=== PATIENT | female | born 1940 | race Native Hawaiian/Other Pacific Islander ===

== ENCOUNTER 2017-12-25 22:29 | Inpatient (IN) | payer MEDICARE ==
--- NOTE | 2017-12-26 00:34 | C.PDOC ---
History Of Present Illness patient walking to the kitchen, tripped and fell, hitting her head. No Loc. Seen by family. No n/v. History obtained from family as pt with severe dementia Time Seen by Provider: 12/26/17 00:28 History Per: Family History/Exam Limitations: physical impairment Onset/Duration Of Symptoms: Hrs Patient States: Fell Striking Head Severity: Moderate Pain Scale Rating Of: 4 Loss Of Consciousness: No Recent travel outside of the [place]: No Additional History Per: Family Past Medical History Reviewed: Historical Data, Nursing Documentation, Vital Signs Vital Signs: Last Vital Signs Temp 98.7 F 12/25/17 23:00 Pulse 74 12/26/17 03:02 Resp 16 12/26/17 03:02 BP 126/76 12/26/17 03:02 Pulse Ox 95 12/26/17 03:02 Family History: States: No Known Family Hx Review Of Systems Review Of Systems: ROS cannot be obtained secondary to pt's inabilty to answer questions. Physical Exam - Physical Exam Appears: Non-toxic Skin: Warm, Dry, Other (1 cm lac left forehead) Head: Normacephalic, Laceration Eye(s): bilateral: Normal Inspection Ear(s): Bilateral: Normal Oral Mucosa: Moist Neck: Trachea Midline, No Midline Cervical Tenderness, No Paracervical Tenderness, Supple Chest: Symmetrical Cardiovascular: Rhythm Regular Respiratory: No Rales, No Rhonchi, No Wheezing Gastrointestinal/Abdominal: Soft, No Tenderness, No Distention Back: No CVA Tenderness Extremity: Normal ROM Extremity: Bilateral: Atraumatic, Normal Color And Temperature Pulses: Left Dorsalis Pedis: Normal, Right Dorsalis Pedis: Normal Neurological/Psych: Eyes Open With Command, Other (severe dementia) Disoriented To: Place, Time, Situation Gait: Unable To Assess ED Course And Treatment - Laboratory Results Result Diagrams: 12/26/17 03:18 12/26/17 03:18 ECG: Interpreted By Me, Viewed By Me ECG Rhythm: Sinus Rhythm Pulse Ox Interpretation: Normal - Radiology CXR: Interpreted by Me, Viewed By Me CXR Interpretation: No: Infiltrates, Fracture, Pnemothorax Progress Note: spoke with dr rousseau, neurosurgery - repeat ct in am. family at bedside and aware of ct findings Critical Care Time - Critical Care Note Total Time (in mins): 30 Documented critical care: time excludes all time spent performing seperately billable procedures. Laceration - Laceration Repair 1.2 Wound Length (In cm): 1.3 Description Of Wound: Linear Wound Cleansed With: Betadine Anesthesia: Lidocaine 1%, With Epi Wound Examination: Irrigated With Saline Wound Closure: Suture (6.0 vycryl #2) Suture Technique And Material Used: Interrupted Wound Complexity: Simple Disposition Discussed With Dr.: Juan Carlos Muñiz Comment: accepted the pt on her service and took over the care at 4:22 AM Doctor Will See Patient In The: Hospital Counseled Patient/Family Regarding: Studies Performed, Diagnosis, Need For Followup - Disposition Disposition: HOSPITALIZED Disposition Time: 00:32 Condition: FAIR - Clinical Impression Clinical Impression: Laceration of forehead, Fall, Subdural bleeding Decision To Admit - Pt Status Changed To: Hospital Disposition Of: Inpatient - Admit Certification Admit to Inpatient:: After my assessment, the patient will require hospitalization for at least two midnights. This is because of the severity of symptoms shown, intensity of services needed, and/or the medical risk in this patient being treated as an outpatient. - InPatient: Physician Admission Certification: I certify that this patient requires 2 or more midnights of care for the following reason:: After my assessment, the patient will require hospitalization for at least two midnights. This is because of the severity of symptoms shown, intensity of services needed, and/or the medical risk in this patient being treated as an outpatient. - . Bed Request Type: Telemetry Admitting Physician: Juan Carlos Muñiz Patient Diagnosis: Laceration of forehead, Fall, Subdural bleeding
[2017-12-26 03:24] LABS: BASO % 0.5 % (0.0-2.0); EOS # 0.2 K/uL (0.0-0.7); EOS % 2.5 % (0.0-4.0); HEMOGLOBIN 11.2 g/dL (11.0-16.0); LYMPH # 2.5 K/uL (1.0-4.3); LYMPH % 30.5 % (20.0-40.0); MEAN CORPUSCULAR HEMOGLOBIN 31.8 pg (27.0-31.0); MEAN CORPUSCULAR HGB CONC 34.2 g/dL (33.0-37.0); MEAN PLATELET VOLUME 7.6 fL (7.2-11.7); MONO # 0.5 K/uL (0.0-0.8); MONO % 5.7 % (0.0-10.0); NEUT % 60.8 % (50.0-75.0); RBC 3.53 Mil/uL (3.80-5.20); RED CELL DISTRIBUTION WIDTH 13.6 % (11.5-14.5); WHITE BLOOD COUNT 8.2 K/uL (4.8-10.8)
[2017-12-26] MEDS ORDERED: Bacitracin 500 Units/gm Oint Foilpak UD ONE (03:31)
[2017-12-26 03:36] LABS: ALB/GLOB RATIO 1.5 (1.0-2.1); ALBUMIN 4.2 g/dL (3.5-5.0); ALT/SGPT 24 U/L (9-52); AST/SGOT 22 U/L (14-36); BLOOD UREA NITROGEN 12 mg/dL (7-17); CALCIUM 8.5 mg/dl (8.6-10.4); GFR AFRICAN-AMERICAN > 60; GFR NON-AFRICAN AMERICAN > 60; INR 1.1; PROTHROMBIN TIME 11.6 SECONDS (9.7-12.2)
[2017-12-26 04:40] LABS: SQUAMOUS EPITHIAL < 1 /hpf (0-5); URINE BACTERIA RARE (<OCC); URINE BILIRUBIN NEGATIVE (NEGATIVE); URINE BLOOD NEGATIVE (NEGATIVE); URINE CLARITY Clear (Clear); URINE COLOR Yellow (YELLOW); URINE GLUCOSE (UA) NORMAL (Normal); URINE LEUKOCYTE ESTERASE 1+ Leu/uL (Negative); URINE PROTEIN NEGATIVE (NEGATIVE); URINE UROBILINOGEN NORMAL mg/dL (0.2-1.0)
[2017-12-26 05:03] VITALS: RESP 20
--- NOTE | 2017-12-26 09:41 | CT ---
Date of service: 12/26/2017 PROCEDURE: CT MAXILLOFACIAL BONES WITHOUT CONTRAST HISTORY: Status post fall. COMPARISON: Comparison made with concurrent CT scan brain. TECHNIQUE: Contiguous axial CT images of the maxillofacial bones were obtained. Coronal and sagittal reformats were generated. Radiation dose: Total exam DLP = 779.89 mGy-cm. This CT exam was performed using one or more of the following dose reduction techniques: Automated exposure control, adjustment of the mA and/or kV according to patient size, and/or use of iterative reconstruction technique. FINDINGS: NASAL BONES: Unremarkable. ORBITS: Orbits and contents unremarkable. Globes intact and lenses appropriately located. There are no retrobulbar hemorrhages or collections. PARANASAL SINUSES/ MASTOIDS: Mucosal thickening seen within a few ethmoid air cells. MAXILLA: Maxilla appears intact. Note made of multiple missing maxillary and mandibular teeth MANDIBLE/ TEMPOROMANDIBULAR JOINTS: Unremarkable. SKULL BASE: Unremarkable. TEMPORAL BONES: Middle ear canals and contents appear grossly unremarkable. Partially visualized mastoid air complexes also unremarkable. OTHER FINDINGS: None. IMPRESSION: No evidence of acute maxillofacial skeletal fractures. Mild mucosal thickening seen within a few ethmoid air cells
[2017-12-26 10:13] LABS: ALB/GLOB RATIO 1.4 (1.0-2.1); ALBUMIN 3.9 g/dL (3.5-5.0); ALT/SGPT 15 U/L (9-52); AST/SGOT 36 U/L (14-36); BLOOD UREA NITROGEN 12 mg/dL (7-17); CALCIUM 8.3 mg/dl (8.6-10.4); GFR AFRICAN-AMERICAN > 60; GFR NON-AFRICAN AMERICAN > 60; HDL CHOLESTEROL 41 mg/dL (30-70)
--- NOTE | 2017-12-26 10:21 | CT ---
Date of service: 12/26/2017 PROCEDURE: CT HEAD WITHOUT CONTRAST. HISTORY: fall COMPARISON: Not available TECHNIQUE: Axial computed tomography images were obtained through the head/brain without intravenous contrast. Radiation dose: Total exam DLP = 802.26 mGy-cm. This CT exam was performed using one or more of the following dose reduction techniques: Automated exposure control, adjustment of the mA and/or kV according to patient size, and/or use of iterative reconstruction technique. FINDINGS: HEMORRHAGE: There is a subdural collection along left lateral convexity measuring up to 4 mm in width. This is seen predominantly over the temporal lobe. There is no subarachnoid or parenchymal hemorrhage appreciated. BRAIN: No mass effect or edema. Mild diffuse age-appropriate cerebral atrophy. Mild chronic periventricular white matter ischemic change consistent with patient age. VENTRICLES: Incidentally noted lipoma of the left choroid plexus. This measures approximately 5 mm in diameter. This has no probable clinical significance. CALVARIUM: Left frontal convexity scalp hematoma. No calvarial fracture identified. PARANASAL SINUSES: Minimal chronic ethmoid and bilateral maxillary sinusitis. MASTOID AIR CELLS: Unremarkable as visualized. No inflammatory changes. OTHER FINDINGS: None. IMPRESSION: 4 mm left temporal convexity subdural hemorrhage with no midline shift and no parenchymal or subarachnoid hemorrhage. 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 Left frontal convexity scalp hematoma. The preliminary findings for this examination were reported by [facility] at 2:15 a.m. on 12/26/2017. There is discordance of this report with the preliminary findings. There is disagreement upon the width of the left subdural hemorrhage. The left choroid plexus lipoma was not noted in preliminary report of this examination.
[2017-12-26 10:23] LABS: LDL CHOLESTEROL 44 mg/dL (0-129)
--- NOTE | 2017-12-26 10:40 | RAD ---
Date of service: 12/26/2017 PROCEDURE: CHEST RADIOGRAPH, 1 VIEW HISTORY: SOB COMPARISON: None available. FINDINGS: LUNGS: The lungs are clear. No focal consolidation. PLEURA: No pneumothorax or pleural fluid seen. CARDIOVASCULAR: The heart is normal in size. There is unfolding of the aorta. OSSEOUS STRUCTURES: No significant abnormalities. VISUALIZED UPPER ABDOMEN: Normal. OTHER FINDINGS: None. IMPRESSION: No active pulmonary disease.
--- NOTE | 2017-12-26 12:50 | CT ---
Date of service: 12/26/2017 PROCEDURE: CT HEAD WITHOUT CONTRAST. HISTORY: Subdural bleed COMPARISON: 12/26/2017. TECHNIQUE: Axial computed tomography images were obtained through the head/brain without intravenous contrast. Radiation dose: Total exam DLP = 758.09 mGy-cm. This CT exam was performed using one or more of the following dose reduction techniques: Automated exposure control, adjustment of the mA and/or kV according to patient size, and/or use of iterative reconstruction technique. FINDINGS: HEMORRHAGE: Interval evolution of known left temporal convexity acute subdural hematoma now measures 3 mm in maximum width. BRAIN: No mass, mass effect or midline shift. No herniation. There are mild chronic microangiopathic changes. There is no territorial infarction. VENTRICLES: There is moderate age-related global parenchymal volume loss and proportionate enlargement of the ventricles and cortical sulci. CALVARIUM: The skull base and calvarium are normal. There is decrease in size of left frontal scalp hematoma. PARANASAL SINUSES: Predominantly clear. MASTOID AIR CELLS: Predominantly clear. OTHER FINDINGS: None. IMPRESSION: Interval involution of known left temporal convexity acute subdural hematoma which now measures 3 mm maximum width. No evidence of mass effect, midline shift or herniation. No hydrocephalus. No other significant interval change.
--- NOTE | 2017-12-26 14:04 | CP.PCM.PN ---
Subjective - Date & Time of Evaluation Date of Evaluation: 12/26/17 Time of Evaluation: 14:04 - Subjective Subjective: H&P dictated #[id number] Objective - Vital Signs/Intake and Output Vital Signs (last 24 hours): Temp Pulse Resp BP Pulse Ox 97.3 F L 100 H 20 110/63 98 12/26/17 07:00 12/26/17 13:07 12/26/17 07:00 12/26/17 07:00 12/26/17 07:00 Intake and Output: 12/26/17 12/26/17 06:59 18:59 Intake Total 0 Balance 0 - Medications Medications: Current Medications Pneumococcal Polyvalent Vaccine (Pneumovax 23 Vaccine) 0.5 ml IM .ONCE ONE Stop: 12/29/17 11:01 - Labs Labs: 12/26/17 03:18 12/26/17 04:30 PT 11.6 SECONDS (9.7-12.2) 12/26/17 03:18 INR 1.1 12/26/17 03:18 APTT 31 SECONDS (21-34) 12/26/17 03:18
[2017-12-26 14:13] LABS: HEMOGLOBIN 11.7 g/dL (11.0-16.0); MEAN CELL VOLUME 92.3 fL (81.0-99.0); MEAN CORPUSCULAR HEMOGLOBIN 32.3 pg (27.0-31.0); MEAN PLATELET VOLUME 7.4 fL (7.2-11.7); RBC 3.61 Mil/uL (3.80-5.20); RED CELL DISTRIBUTION WIDTH 13.6 % (11.5-14.5); WHITE BLOOD COUNT 9.4 K/uL (4.8-10.8)
[2017-12-26 14:42] LABS: ALB/GLOB RATIO 1.2 (1.0-2.1); ALT/SGPT 23 U/L (9-52); AST/SGOT 23 U/L (14-36); BLOOD UREA NITROGEN 11 mg/dL (7-17); CALCIUM 8.5 mg/dl (8.6-10.4); GFR AFRICAN-AMERICAN > 60; GFR NON-AFRICAN AMERICAN > 60
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
--- NOTE | 2017-12-27 08:27 | CON ---
Copied To: German Rodriguez MD Attending MD: German Rodriguez MD DATE: 12/26/2017 HISTORY OF PRESENT ILLNESS: This is an 81-year-old lady apparently with baseline dementia according to her family who apparently fell late last night, seen in the [facility] ER, and was found to have increasing intracranial air and a very small left subdural hematoma. She was admitted to the hospital. On interviewing her today with the family present, she really is not giving much to the way of appropriate answers. She is making mostly the suspicious remarks, but she is following all commands in her ramona language. Pupils are equal and reactive. She has a significant amount of ecchymosis in and around the left orbit. Face is otherwise symmetric. She is moving all extremities with good strength. CT done last night and then repeated this afternoon which is unchanged, showed a very, very small left isodense subdural collection of really no clinical significance. Seems to have small amounts of air in the left lateral ventricle, unclear where they were come from. Does not seem to have any air in the subfrontal region. Anyway, this is unchanged from prior. IMPRESSION AND PLAN: Certainly, there is no need for neurosurgical intervention here. I would simply recommend one more followup CT tomorrow. Should have occupational therapy, physical therapy, speech therapy, and rehab or subacute transfer. German Rodriguez MD
[2017-12-27] MEDS ORDERED: Multiple Vitamins Tab PO SCH (10:00)
[2017-12-27] MEDS ORDERED: Pantoprazole 40 mg EC Tab PO SCH (10:00)
[2017-12-27] MEDS ORDERED: Venlafaxine 150 mg ER Cap PO SCH (10:00)
--- NOTE | 2017-12-27 11:04 | CARD ---
APPROVED REPORT Date of service: 12/26/2017 EKG Measurement Heart [id number] <Conclusion> Normal sinus rhythm non specific st t changes.
--- NOTE | 2017-12-27 11:21 | CP.PCM.PN ---
Subjective - Date & Time of Evaluation Date of Evaluation: 12/27/17 Time of Evaluation: 11:21 - Subjective Subjective: Discharge summary dictated #[id number] Objective - Vital Signs/Intake and Output Vital Signs (last 24 hours): Temp Pulse Resp BP Pulse Ox 97.7 F 78 20 106/68 99 12/27/17 09:04 12/27/17 09:04 12/27/17 09:04 12/27/17 09:04 12/27/17 09:04 Intake and Output: 12/27/17 12/27/17 06:59 18:59 Intake Total 240 Balance 240 - Medications Medications: Current Medications Amlodipine Besylate (Norvasc) 5 mg PO DAILY REPLACED BY [facility] Last Admin: 12/27/17 10:06 Dose: 5 mg Donepezil HCl (Aricept) 10 mg PO HS REPLACED BY [facility] Last Admin: 12/26/17 22:02 Dose: Not Given Ergocalciferol (Drisdol 50,000 Intl Units Cap) 1 cap PO QWK REPLACED BY [facility] Hydrochlorothiazide (Microzide) 12.5 mg PO DAILY REPLACED BY [facility] Last Admin: 12/27/17 10:06 Dose: 12.5 mg Losartan Potassium (Cozaar) 25 mg PO DAILY REPLACED BY [facility] Last Admin: 12/27/17 10:06 Dose: 25 mg Memantine (Namenda) 10 mg PO BID REPLACED BY [facility] Last Admin: 12/27/17 10:06 Dose: 10 mg Multivitamins (Hexavitamin) 1 tab PO DAILY REPLACED BY [facility] Last Admin: 12/27/17 10:05 Dose: 1 tab Pantoprazole Sodium (Protonix Ec Tab) 40 mg PO DAILY REPLACED BY [facility] Last Admin: 12/27/17 10:06 Dose: 40 mg Pneumococcal Polyvalent Vaccine (Pneumovax 23 Vaccine) 0.5 ml IM .ONCE ONE Stop: 12/29/17 11:01 Rosuvastatin Calcium (Crestor) 5 mg PO HS REPLACED BY [facility] Venlafaxine HCl (Effexor Xr) 150 mg PO DAILY REPLACED BY [facility] Last Admin: 12/27/17 10:06 Dose: 150 mg - Labs Labs: 12/26/17 14:00 12/26/17 14:00 PT 11.6 SECONDS (9.7-12.2) 12/26/17 03:18 INR 1.1 12/26/17 03:18 APTT 31 SECONDS (21-34) 12/26/17 03:18
--- NOTE | 2017-12-27 11:40 | CT ---
Date of service: 12/27/2017 PROCEDURE: CT HEAD WITHOUT CONTRAST. HISTORY: DX SUBDURAL HEMATOMA,FALL COMPARISON: NoneComparison made with CT scan brain 12/26/2017. Aggarwal available. TECHNIQUE: Axial computed tomography images were obtained through the head/brain without intravenous contrast. Radiation dose: Total exam DLP = 731.53 mGy-cm. This CT exam was performed using one or more of the following dose reduction techniques: Automated exposure control, adjustment of the mA and/or kV according to patient size, and/or use of iterative reconstruction technique. . FINDINGS: HEMORRHAGE: There is a tiny residual left-sided temporal subdural hematoma which extends from the inferior margin of the left middle cranial fossa superiorly and to the level of the left middle temporal gyrus level. No significant mass-effect. . . BRAIN: Mild chronic periventricular white matter ischemic changes with a few scattered chronic bilateral basal nuclei lacunar type infarcts. Moderate -central volume loss unchanged. Vascular calcifications both carotid siphons and vertebral arteries. . 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 VENTRICLES: No obstructive hydrocephalus. Re- demonstrated is a small residual focus of fat within the left choroid plexus/left atrium. CALVARIUM: There are no acute calvarial fractures. . Interval improvement previously noted left frontotemporal scalp contusion. PARANASAL SINUSES: Mucoperiosteal inflammatory changes seen within the ethmoid air complex and superomedial aspect of the left maxillary sinus. MASTOID AIR CELLS: Unremarkable as visualized. No inflammatory changes. OTHER FINDINGS: None. IMPRESSION: Tiny residual left-sided temporal subdural hematoma. No significant mass effect. No new hemorrhages or hydrocephalus. Mild chronic white matter and scattered chronic bilateral basal nuclei the ischemic changes. Moderate central volume loss. Continued improvement previously noted left frontotemporal scalp contusion.
[2017-12-27 15:20] VITALS: BP 119/74; PULSE 89; TEMP 98.4; O2SAT 98
--- NOTE | 2017-12-28 23:45 | DS ---
Copied To: Juan Carlos Muñiz MD Attending MD: Juan Carlos Muñiz MD DISCHARGE DIAGNOSES: Status post fall with left-sided small subdural hematoma, left-sided scalp hematoma and frontal laceration, hypertension, dementia, hyperlipidemia, depression. HISTORY OF PRESENT ILLNESS: Ms. Trent is a 77-year-old female with past medical history of hypertension, hyperlipidemia, dementia, depression, who has been following up with Dr. Turner from [place], admitted for trip and fall with left frontal laceration and in the ED, patient was found to be having small subdural hematoma. Patient is being admitted for further monitoring. Today, patient is feeling better. She denies any complaints other than pain at the suture site. PHYSICAL EXAMINATION: GENERAL: An elderly female sitting in bed in no acute distress. VITAL SIGNS: Blood pressure 119/74, pulse 89, respirations 20, temperature 98.4 degrees Fahrenheit, O2 saturations 98% on room air. HEENT: Pupils equal, reacting to light and accommodation. Left temporal region ecchymosis, noted laceration with dressing in place. No icterus. No pallor. No oral thrush. No pharyngeal congestion. NECK: Supple. No JVD. LUNGS: Bilateral vesicular breath sounds. No wheezing. No rhonchi. CARDIOVASCULAR SYSTEM: S1, S2 present, regular. ABDOMEN: Soft and nontender. Bowel sounds present. No guarding. No rigidity. No rebound tenderness noted. CENTRAL NERVOUS SYSTEM: Alert, awake, oriented x1. No focal deficits noted. EXTREMITIES: No edema. Palpable peripheral pulses. LABORATORY DATA: Labs done yesterday, WBC 9.4, hemoglobin 11.7, hematocrit 33.3, platelets 267. Sodium 137, potassium 3.9, chloride 101, bicarb 26, BUN 11, creatinine 0.6, glucose 118, calcium 8.5. Total bilirubin 0.9, AST 23, ALT 23, alkaline phosphatase 63. Vitamin B12 is 437. TSH is 0.83. DIAGNOSTIC DATA: CT head from this morning shows tiny residual left-sided temporal subdural hematoma, no significant mass effect, no new hemorrhages or hydrocephalus. HOSPITAL COURSE: Patient was admitted to telemetry. Patient's laceration was sutured in the emergency room. Patient was was evaluated by Neurosurgery. Repeat CT after 24 hours, is much better, improving. The patient was also evaluated by Neurology. As patient is clinically stable and no progression of the hematoma, patient is cleared by Neurosurgery and patient is being discharged. Advised patient's daughter and granddaughter to follow up with PMD, Neurology and Neurosurgery as outpatient. CONDITION UPON DISCHARGE: Patient was alert, awake, oriented x1 and hemodynamically stable at the time of discharge. DISCHARGE INSTRUCTIONS: Follow up with PMD. Follow up with Neurosurgery. Follow up with Neurology. Recommended to resume all her home medications, which include amlodipine 5 mg daily, hydrochlorothiazide 12.5 mg daily, losartan 25 mg daily, Namenda 28 mg daily, multivitamins, omeprazole, Zocor 20 mg at bedtime, Effexor 150 mg daily, Ambien 10 mg p.o. at bedtime. Advised patient's daughter to bring the patient back to ED if any worsening of the symptoms. Juan Carlos Muñiz MD
[2017-12-29] MEDS ORDERED: Pneumococcal 23-Valent Vaccine IM ONE (11:00)
[2018-01-02] MEDS ORDERED: Ergocalciferol 50,000 Intl Units Cap PO SCH (10:00)
== END 2017-12-27 16:29 | disposition home or self-care (01) | DRG 87 ==
LOC: C.ER 22:29 → C.6T 12-26 04:19
PROVIDERS: ADMIT Internal Medicine; ATTEND Internal Medicine
DX: S06.5X0A Traumatic subdural hemorrhage without loss of consciousness, initial encounter (principal); F02.80 Dementia in other diseases classified elsewhere, unspecified severity, without behavioral disturbance, psychotic disturbance, mood disturbance, and anxiety; E78.5 Hyperlipidemia, unspecified; G30.9 Alzheimer's disease, unspecified; F32.9 Major depressive disorder, single episode, unspecified; I10 Essential (primary) hypertension; K21.9 Gastro-esophageal reflux disease without esophagitis; S01.01XA Laceration without foreign body of scalp, initial encounter; S01.81XA Laceration without foreign body of other part of head, initial encounter; W01.10XA Fall on same level from slipping, tripping and stumbling with subsequent striking against unspecified object, initial encounter; Z88.0 Allergy status to penicillin